=== PATIENT | male | born 1960 | race Two or more races ===

== ENCOUNTER 2023-02-11 07:32 | Emergency (ER) | payer OTHER ==
[~2023-02-11] VITALS: Ht 180.3 cm; Wt 67.6 kg
[2023-02-11] MEDS ORDERED: ZESTRIL2.5 MG PO (08:05)
[2023-02-11] MEDS ORDERED: LASIX40 MG PO (08:06)
[2023-02-11] MEDS ORDERED: TRAMADOL HCL E100 M1 (08:06)
[2023-02-11] MEDS ORDERED: LANOXIN125 MCG PO (08:06)
[2023-02-11] MEDS ORDERED: TOPROL XL25 M1 PO (08:06)
== END 2023-02-11 11:26 | disposition home or self-care (01) ==
LOC: ER 07:32
PROVIDERS: General Practice
DX: C18.9 Malignant neoplasm of colon, unspecified (principal); C78.7 Secondary malignant neoplasm of liver and intrahepatic bile duct